=== PATIENT | female | born 1970 | race Two or more races ===

== ENCOUNTER → 2023-01-20 | Emergency (ER) | payer SELFPAY ==
[~2023-01-20] VITALS: Ht 162.6 cm; Wt 90.0 kg
[~2023-01-20] MED LIST: HALOPERIDOL LACTATE 5 MG/ML INJ VIAL IM ONE; HYDROcodone-ACET 5/325MG TAB PO ONE; KETOROLAC TROMETH 30 MG/ML 1ML VIAL IV ONE; KETOROLAC TROMETH 60MG/2ML VIAL ONE; LORazepam 2MG/ML-1ML VIAL IV ONE; SODIUM CHLORIDE 0.9% 1,000 ML IV ONE; cefTRIAXone 1GM/50ML D5W 50 ML IV ONE; diphenhdrAMINE HCL 50 MG/1 ML VL IV ONE
[2023-01-20 14:25] VITALS: PULSE 74; RESP 22; O2SAT 98
[2023-01-20 15:01] LABS: Basophils # (auto) 0.1 10 ^3/uL (0-0.2); Basophils % (auto) 0.7 % (0.0-2.0); Eosinophils # (auto) 0 10 ^3/uL (0-0.8); Eosinophils % (auto) 0.4 % (0.0-7.0); Hematocrit 36.4 % (36.0-46.0); Hemoglobin 11.8 g/dL (12.2-16.2); Mean Corpuscular Hemoglobin 27.4 pg (28.0-32.0); Mean Corpuscular Hgb Conc. 32.5 g/dL (32.0-36.0); Mean Corpuscular Volume 84.5 fL (80.0-100.0); Monocytes # (auto) 0.9 10 ^3/uL (0-1.3); Monocytes % (auto) 7.9 % (0.0-12.0); Nucleated Red Blood Cells % 0.1 %; Red Blood Cells 4.31 10^6/uL (4.0-5.20); Red Cell Distribution Width 15.2 % (11.8-14.3)
[2023-01-20 15:13] LABS: Alanine Aminotransferase 319 U/L (7-40); Albumin 4.4 g/dL (3.2-4.8); Alkaline Phosphatase 83 U/L (46-116); Anion Gap 12 (5-15); Aspartate Aminotransferase 736 U/L (13-40); BUN/Creatinine Ratio 37.1 (10.0-20.0); Bilirubin, Total 0.7 mg/dL (0.2-1.0); Blood Urea Nitrogen 33 mg/dL (9-23); Calcium 8.5 mg/dL (8.7-10.4); Carbon Dioxide 22 mmol/L (20-30); Chloride 108 mmol/L (98-107); Glucose 108 mg/dL (74-106); Sodium 142 mmol/L (136-145); Total Protein 6.5 g/dL (5.7-8.2)
[2023-01-20 15:37] LABS: Urine Bacteria MANY /hpf (None Seen); Urine Blood 3+ /uL (Negative); Urine Clarity HAZY (Clear); Urine Color Yellow (Yellow); Urine Hyaline Cast MOD /lpf (0 - 2); Urine Mucus FEW (None Seen); Urine Protein, UAD 2+ (Negative); Urine Specific Gravity 1.038 (1.001-1.035); Urine Urobilinogen Normal (Negative); Urine WBC 17 /hpf (0 - 5)
[2023-01-20 15:48] LABS: Amphetamine Screen, Urine Pos (NEGATIVE)
[2023-01-20 15:49] LABS: Barbiturate Scree,Urine Neg (NEGATIVE); Benzodiazephine Screen, Urine Pos (NEGATIVE); Cannabinoid Screen, Urine Neg (NEGATIVE); Cocaine Screen, Urine Neg (NEGATIVE); Opiate Scree,Urine Neg (NEGATIVE); Phencyclidine Screen, Urine Neg (NEGATIVE)
[2023-01-20 19:30] VITALS: PULSE 64; RESP 16
[2023-01-21 07:47] LABS: Alanine Aminotransferase 280 U/L (7-40); Alkaline Phosphatase 68 U/L (46-116); Anion Gap 9 (5-15); Aspartate Aminotransferase 537 U/L (13-40); BUN/Creatinine Ratio 29.4 (10.0-20.0); Blood Urea Nitrogen 20 mg/dL (9-23); Calcium 8.3 mg/dL (8.5-10.1); Carbon Dioxide 23 mmol/L (20-30); Chloride 111 mmol/L (98-107); Glucose 90 mg/dL (74-106); Potassium 3.2 mmol/L (3.5-5.1); Sodium 143 mmol/L (136-145)
[2023-01-21 07:48] LABS: Albumin 3.9 g/dL (3.2-4.8)
[2023-01-21 07:49] LABS: Bilirubin, Total 0.5 mg/dL (0.2-1.0); Total Protein 6.1 g/dL (5.7-8.2)
[2023-01-21 09:01] VITALS: BP 128/55; PULSE 51; RESP 22; TEMP 97.9; O2SAT 97
== END | disposition home or self-care (01) ==
LOC: EDBD 14:16 → ER 14:16
DX: F29 Unspecified psychosis not due to a substance or known physiological condition (principal); R10.2 Pelvic and perineal pain; F15.10 Other stimulant abuse, uncomplicated
CPT/HCPCS: 36415; 80053; 80307; 80320; 81001; 84702; 85025; 96361; 96365; 96372; 96375; 96376; 99285; J0696; J1200; J1630; J1885; J2060; J7030

== ENCOUNTER 2025-01-04 09:18 | Emergency (ER) | payer OTHER ==
[~2025-01-04] VITALS: Ht 160 cm; Wt 74.0 kg
--- NOTE | 2025-01-04 09:39 | ECG ---
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
[2025-01-04] MEDS: SODIUM CHLORIDE 0.9% 1,000 ML IV ONE (10:00)
[2025-01-04 10:13] LABS: Hematocrit 37.3 % (36.0-46.0); Hemoglobin 12.5 g/dL (12.2-16.2); Mean Corpuscular Hemoglobin 28.8 pg (28.0-32.0); Mean Corpuscular Volume 86.4 fL (80.0-100.0); Nucleated Red Blood Cells % 0.1 %
[2025-01-04 10:18] VITALS: PULSE 79; RESP 12; TEMP 98.3; O2SAT 95
--- NOTE | 2025-01-04 10:24 | ED.PDOC ---
Altered Mental Status HPI Comments Laisha Jules is a 54-year-old female, with past medical history of polysubstance abuse, bipolar disorder, depression, hypothyroidism, "ear cancer" and facial palsy. The patient came to the ED with 1 day of altered mental status and confusion. is at bedside, he reports noticing the patient confused and with unstable gait. On further questioning the patient is using multiples medications at home that she is not sure about the doses. This morning the patient present some face and upper extremities tremors and motor tics, this prompted her visit to the ED. The patient denies fever, chills. diarrhea, headache, chest pain, palpitation, motor deficits or other symptoms. 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: Denies all COAL CUTTING MACHINE OPERATOR Hx, Unknown, Unobtainable Family History Family History: Reviewed,noncontributory to illness, Unknown, Unobtainable Social History Smoker: Unknown, Unobtainable Alcohol: Unknown, Unobtainable Drugs: Methamphetamine Lives In: Home Constitutional: reports: weakness; denies: chills, diaphoresis, fatigue, fever, malaise, sweats, others EENTM: denies: blurred vision, double vision, ear bleeding, ear discharge, ear drainage, ear pain, ear ringing, eye pain, eye redness, hearing loss, mouth pain, mouth swelling, nasal discharge, nose bleeding, nose congestion, nose pain, photophobia, tearing, throat pain, throat swelling, voice changes, others Respiratory: denies: cough, hemoptysis, orthopnea, SOB at rest, shortness of breath, SOB with excertion, stridor, wheezing, others Cardiovascular: denies: chest pain, dizzy spells, diaphoresis, Dyspnea on exertion, edema, irregular heart beat, left arm pain, lightheadedness, palpitations, PND, syncope, others Gastrointestinal: denies: abdomen distended, abdominal pain, blood streaked bowels, constipated, diarrhea, dysphagia, difficulty swallowing, hematemesis, melena, nausea, poor appetite, poor fluid intake, rectal bleeding, rectal pain, vomiting, others Genitourinary: denies: abnormal vagina bleeding, burning, dyspareunia, dysuria, flank pain, frequency, hematuria, incontinence, pain, , vagina discharge, urgency, others Neurological: reports: others (Confusion, unstable gait); denies: dizziness, fainting, headache, left sided numbness, left sided weakness, numbness, pares thesia, pre-existing deficit, right sided numbness, right sided weakness, seizure, speech problems, tingling, tremors, weakness Musculoskeletal: denies: back pain, gout, joint pain, joint swelling, muscle pain, muscle stiffness, neck pain, others Integumetry: denies: bruises, change in color, change in hair/nails, dryness, laceration, lesions, lumps, rash, wounds, others Allergic/Immunocompromised: denies: Difficulty Healing, Frequent Infections, Hives, Itching, others Hematologic/Lymphatic: denies: anemia, blood clots, easy bleeding, easy bruisi ng, swollen glands, others Endocrine: denies: excessive hunger, excessive sweating, excessive thirst, exce ssive urination, flushing, intolerance to cold, intolerance to heat, unexplained weight gain, unexplained weight loss, others Psychiatric: reports: bipolar disorder, depression; denies: anxiety, hopeless, panic disorder, schizophrenia, sleepless, suicidal, others Physical Exam General Appearance: No Apparent Distress, Normal HEENT: Normal ENT Inspection, Pharynx Normal, TMs Normal, Other (Facial left paralisys.) Neck: Full Range of Motion, Non-Tender, Normal, Normal Inspection Respiratory: Chest Non-Tender, Lungs Clear, No Accessory Muscle Use, No Respiratory Distress, Normal Breath Sounds Cardiovascular: No Edema, No JVD, No Murmur, No Gallop, Normal Peripheral Pulses, Regular Rate/Rhythm Breast Exam: Deferred Gastrointestinal: No Organomegaly, Non Tender, No Pulsatile Mass, Normal Bowel Sounds, Soft Genitalia: Deferred Pelvic: Deferred Rectal: Deferred Extremities: No calf tenderness, Normal capillary refill, Normal inspection, Normal range of motion, Non-tender, No pedal edema Musculoskeletal : Apperance: Normal Neurologic: Abnormal Gait (unstable gait), Alert (The patient is alter, oriented only in person but not in time or place. ), management developer II-XII nml as Tested, No Motor Deficits, Normal Affect, Normal Mood, No Sensory Deficits Cerebellar Function: Unable to Test Reflexes: Normal Skin: Dry, Normal Color, Warm Lymphatic: No Adenopathy Was a procedure done? Was a procedure done?: No Differential Diagnosis (ALOC) Differential Diagnosis: Hypoglycemia, Encephalopathy, CVA X-Ray, Labs, Meds, VS Vital Signs Date Time Temp Pulse Resp B/P (MAP) Pulse Ox O2 Delivery O2 Flow Rate FiO2 01/04/25 10:18 98.3 79 12 141/86 (104) 99 98.3 01/04/25 10:18 79 12 95 Room Air* 0 21 01/04/25 09:37 77 01/04/25 09:31 98.1 82 20 133/93 98 98.1 Lab Test 01/04/25 10:56 01/04/25 09:56 Range/Units Troponin I High Sensitivity 8 8 </=34 ng/L White Blood Count 8.9 4.4-10.8 10^3/uL Red Blood Count 4.32 4.0-5.20 10^6/uL Hemoglobin 12.5 12.2-16.2 g/dL Hematocrit 37.3 36.0-46.0 % Mean Corpuscular Volume 86.4 80.0-100.0 fL Mean Corpuscular Hemoglobin 28.8 28.0-32.0 pg Mean Corpuscular Hemoglobin Concent 33.4 32.0-36.0 g/dL Red Cell Distribution Width 15.7 H 11.8-14.3 % Platelet Count 313 140-450 10^3/uL Mean Platelet Volume 9.1 6.9-10.8 fL Neutrophils (%) (Auto) 79.6 37.0-80.0 % Lymphocytes (%) (Auto) 13.4 10.0-50.0 % Monocytes (%) (Auto) 6.8 0.0-12.0 % Eosinophils (%) (Auto) 0.0 0.0-7.0 % Basophils (%) (Auto) 0.2 0.0-2.0 % Neutrophils # (Auto) 7.1 1.6-8.6 10 ^3/uL Lymphocytes # (Auto) 1.2 0.4-5.4 10 ^3/uL Monocytes # (Auto) 0.6 0-1.3 10 ^3/uL Eosinophils # (Auto) 0 0-0.8 10 ^3/uL Basophils # (Auto) 0 0-0.2 10 ^3/uL Nucleated Red Blood Cells 0.1 % Sodium Level 146 H 136-145 mmol/L Potassium Level 4.4 3.5-5.1 mmol/L Chloride Level 108 H 98-107 mmol/L Carbon Dioxide Level 30 20-31 mmol/L Anion Gap 8 5-15 Blood Urea Nitrogen 12 9-23 mg/dL Creatinine 0.75 0.550-1.02 mg/dL Glomerular Filtration Rate Calc 94 >90 mL/min BUN/Creatinine Ratio 16.0 10.0-20.0 Serum Glucose 110 H 74-106 mg/dL Lactic Acid Level 1.1 0.4-2.0 mmol/L Calcium Level 9.2 8.7-10.4 mg/dL Magnesium Level 2.1 1.6-2.6 mg/dL Total Bilirubin 0.3 0.2-1.0 mg/dL Aspartate Amino Transferase (AST) 32 13-40 U/L Alanine Aminotransferase (ALT) 86 H 7-40 U/L Alkaline Phosphatase 59 46-116 U/L Total Protein 6.1 5.7-8.2 g/dL Albumin 3.9 3.2-4.8 g/dL Current Medications Medications (Trade) Dose Ordered Sig/Sarita Route Start Time Stop Time Status Last Admin Sodium Chloride 1,000 ml @ 1,000 mls/hr Q1H ONCE IV 01/04/25 10:00 01/04/25 10:59 DC 01/04/25 10:00 X-Ray, Labs, Meds, VS Comment 11:48 The patient has been re-asssessed. CBC: WBC 8.9x10e3/uL Hb: 12.5 Plt:313 CMP: Na 146, ALT:86 CT head: Post surgical changes surrounding the left mastoid with focal encephalomalacia in the posterior left temporal lobe. No acute intracranial pathology 12:[address] Stewart, [facility] to transfer the patient for further management and medication reconciliation. [facility] accepted the transfer (case# [id number]), but the patient has decided to go against medical advise (AMA). She wants to go with her . is bedside and agree with the patient to go home. I have explain the risks and possible complications to go AMA, the patient agree to understanding but still wants to go AMA. Time of 1ST Reevaluation: 11:48 Reevaluation 1ST: Improved Time of 2ND Reevaluation: 12:20 Reevaluation 2ND: Improved Patient Education/Counseling: Diagnosis, Treatment, Prognosis, Need For Follow Up Family Education/Counseling: Diagnosis, Treatment, Prognosis, Need For Follow Up SEPSIS Sepsis Screen Date sepsis recognized/suspect: Jan 04, 2025 Time Sepsis recognized/suspect: 936 Recent Procedure: No On Antibiotic Therapy: No Respiratory Rate >20: No Heart Rate >90: No Temp<36 C (96.8 F) or >38.3 C: No SBP <90 or MAP <65 mmHG: No New Acute Mental Status Change: No Is the patient on CPAP, BIPAP,: No Physician Orders Accucheck (01/04/25 09:29) 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/04/25 ) Urinalysis (01/04/25 09:48) Troponin-I Hs (01/04/25 12:48) Stroke Assessment (01/04/25 10:02) Head Without Contrast (01/04/25 10:09) Vital Signs Date Time Temp Pulse Resp B/P (MAP) Pulse Ox O2 Delivery O2 Flow Rate FiO2 01/04/25 10:18 98.3 79 12 141/86 (104) 99 98.3 01/04/25 10:18 79 12 95 Room Air* 0 21 01/04/25 09:37 77 01/04/25 09:31 98.1 82 20 133/93 98 98.1 Laboratory Tests Test 01/04/25 09:56 Lactic Acid Level 1.1 mmol/L (0.4-2.0) White Blood Count 8.9 10^3/uL (4.4-10.8) Medications Medications Dose Ordered Sig/Sarita Route Start Time Stop Time Status Last Admin Dose Admin Sodium Chloride 1,000 ml @ 1,000 mls/hr Q1H ONCE IV 01/04/25 10:00 01/04/25 10:59 DC 01/04/25 10:00 Departure 1 Departure Time of Disposition: 12:32 Impression: Primary Impression: Essential tremor Additional Impression: Drug interaction Disposition: LEFT AGAINST MEDICAL ADVICE Condition: Other (Unknown ) Comments Goals of care discussed with the patient > 35 min. Discussed plan of care with Dr. Bruno Code status: Full code PCP: At [facility], does not recall name I spoke with Dr. Stewart, [facility] to transfer the patient for further management and medication reconciliation. [facility] accepted the transfer, but the patient has decided to go against medical advise (AMA). She wants to go with her . is bedside and agree with the patient to go home. I have explain the risks and possible complications to go AMA, the patient agree to understanding but still wants to go AMA. Critical Care Note Critical Care Time?: Yes (35 min-critical care time only) Stability Stability form required: Yes Stable for transfer: To designated facility ([facility]) Heart Score Heart Score: Heart Score Response (Comments) Value History N/A 0 EKG N/A 0 Age N/A 0 Risk Factors N/A 0 Troponin N/A 0 Total 0 ANNAMARIE CABALLERO RESIDENT Jan 04, 2025 10:24
[2025-01-04 10:28] LABS: Albumin 3.9 g/dL (3.2-4.8); Alkaline Phosphatase 59 U/L (46-116); Anion Gap 8 (5-15); BUN/Creatinine Ratio 16.0 (10.0-20.0); Bilirubin, Total 0.3 mg/dL (0.2-1.0); Blood Urea Nitrogen 12 mg/dL (9-23); Calcium 9.2 mg/dL (8.7-10.4); Carbon Dioxide 30 mmol/L (20-31); Magnesium 2.1 mg/dL (1.6-2.6); Potassium 4.4 mmol/L (3.5-5.1); Total Protein 6.1 g/dL (5.7-8.2)
[2025-01-04 10:30] LABS: Alanine Aminotransferase 86 U/L (7-40); Chloride 108 mmol/L (98-107); Glucose 110 mg/dL (74-106); Sodium 146 mmol/L (136-145)
--- NOTE | 2025-01-04 11:50 | DVH ---
CT brain without contrast CLINICAL INDICATION: ALOC FINDINGS: The study was performed in a multidetector scanner. This study performed taking axial image s from the skull base up to the vertex. Both brain and bone windows are photographed. Dose lowering techniques have been used including automated exposure control and adjustment of mA and /or KV according to patient size. Normal and symmetrical shape and density of brain parenchyma above and below the tentorium is seen. T here is no mass, midline shift or hydrocephalus. No intra/extra-axial collections demonstrated. There is no intracranial hemorrhage. Evidence of prior mastoidectomy and partial temporal bone resection. There is a small focal area of encephalomalacia in the posterior left temporal lobe IMPRESSION: 1. Post surgical changes surrounding the left mastoid with focal encephalomalacia in the posterior le ft temporal lobe. No acute intracranial pathology Computed Tomographic Radiation Dosimetry Report: Total CTDI vol = 48.06mGy Total DLP = 48.06mGy-cm Al l CT scans at this medical facility are performed using dose modulation techniques as appropriate to a performed exam including the following: Automated exposure control was utilized; adjustment of the MA and/or KvP according to patient size; and use of iterative reconstruction technique.
[2025-01-04 12:00] VITALS: BP 144/92; PULSE 72; RESP 11; O2SAT 98
== END 2025-01-04 12:25 | disposition left against medical advice (07) ==
LOC: ER 09:21
DX: G25.0 Essential tremor (principal); E03.9 Hypothyroidism, unspecified; F17.200 Nicotine dependence, unspecified, uncomplicated; F31.9 Bipolar disorder, unspecified; G93.89 Other specified disorders of brain; Z79.899 Other long term (current) drug therapy
CPT/HCPCS: 36415; 70450; 80053; 82947; 83605; 83735; 84484; 85025; 93005; 96360; 96361; 99284; J7030; 99291